=== PATIENT | male | born 1950 | race Caucasian/White ===

== ENCOUNTER → 2016-06-23 | Outpatient (CLI) | payer MEDICARE ==
[~2016-06-23] MED LIST: ASPIRIN 81MG TA81 MG PO; COUMADIN 2MG TAB2 MG PO; COUMADIN 5MG TAB5 MG PO; CRESTOR10 MG PO; FLUOXETINE20 M1 PO; MULTI VITAMINS1 TA1 PO; PRAVASTATIN 40M40 MG PO; VITAMIN D1000 IU PO
--- NOTE | 2016-06-23 15:23 | RADIOLOGY REPORT PS360 ---
History and Indications: Coronary artery disease, previous [place]. Procedure: Patient received 0.4 mg of Lexiscan, resting heart rate was 47 beats per resting blood pressure 113/69, with Lexiscan maximum heart rate achieved was 86 bpm which is less than 85% of the maximum predicted heart rate and a blood pressure was 121/74 with Lexiscan patient complained of nausea and shortness of breath. Electrocardiogram: Resting electrocardiogram showed sinus bradycardia, with Lexiscan there is less than 1.[address] segment depression noted from the baseline EKG. The EKG portion of the Lexiscan is nondiagnostic. Cardiac stress and resting SPECT images: Cardiac stress and resting SPECT images were obtained using technetium 99 Myoview 10.7 mCi at rest and 30.7 mCi at stress, gated SPECT further analysis of segmental wall motion and calculation of the ejection fraction also done. Cardiac stress and the suspect images show a fixed involving the inferior and posterobasal wall with reduced contractility in the gated SPECT is likely secondary to prior nontransmural myocardial scarring, no obvious reversible ischemia seen. Cardiac ejection fraction is 49% with marked inferior and posterobasal wall hypokinesis. Right ventricle is normal size and contractility. Conclusion: 1. The EKG portion of the Lexiscan is nondiagnostic. 2. Scintigraphic evidence of prior nontransmural myocardial scarring involving the inferior and posterobasal wall without significant khadijah-infarct ischemia. 3. Computer derived ejection fraction is 49% no wall motion abnormalities as described above, right ventricle is normal size and contractility. 4. Abnormal scan Myoview study.
--- NOTE | 2016-06-23 17:06 | RADIOLOGY REPORT PS360 ---
PROCEDURE: 2-D M-mode and color Doppler study INDICATIONS FOR THE TEST: Chest pain COPD Heart Murmur+ Tobacco Smoking+ Palpitations Fatigue Syncope Edema Hypertension+Diabetes Mellitus Rheumatic Fever SOB SCHMIDT Obesity Hyperlipidemia+ Family History HD Additional History CAD, AFIB, 1 Stent PATIENT INFORMATION HEIGHT: 75 WEIGHT: 166 GENDER: Male B/P: 113/69 2-D/M-MODE INTERPRETATION: 2-D MEASUREMENTS OBSERVED VALUES IN CMS Right Ventricular Dimension (RVDd) 2.2 Interventricular Septum (Thickness)(IVsd) 0.9 Left Ventricular Internal Dimensions(LVIDd) 5.2 Left Ventricular Posterior Wall (Thickness)(LVPWd) 0.8 Aortic Root 2.4 Aortic Cusp Separation 2.6 Left Atrial Dimensions (LAD) 3.2 2D 1. Left atrium is normal size, left ventricle is normal size, there is no concentric left ventricular hypertrophy, visually estimated ejection fraction 55% with no obvious regional wall motion abnormality. 2. The right atrium and right ventricle are normal size and contractility. 3. The aortic valve is minimally thickened and calcified there is no aortic stenosis. 4. The mitral valve has mild mitral desiccation there is no mitral stenosis. 5. The tricuspid valve is structurally normal. 6. The pulmonic valve is not well visualized. 7. No significant pericardial effusion noted. DOPPLER INTERROGATION: Doppler interrogation of the aortic mitral and tricuspid valvular presence of mild mitral and tricuspid regurgitation, grade 1 diastolic dysfunction seen without Doppler evidence of raised left atrial pressure. Tricuspid regurgitant jet velocity insufficient for calculation of the right ventricular systolic pressure. CONCLUSION: 1. Normal left ventricular size, preserved left ventricular systolic function visually estimated ejection fraction 55% with no obvious regional wall motion abnormality, grade 1 diastolic dysfunction seen without tissue Doppler evidence of raised left atrial pressure. 2. Mild mitral and tricuspid regurgitation. 3. No significant pericardial effusion noted.
== END ==
LOC: RAD 07:00
DX: I25.10 Atherosclerotic heart disease of native coronary artery without angina pectoris (principal); I10 Essential (primary) hypertension; I48.91 Unspecified atrial fibrillation; G45.9 Transient cerebral ischemic attack, unspecified; R00.1 Bradycardia, unspecified; Z95.5 Presence of coronary angioplasty implant and graft
CPT/HCPCS: A9502; J2785

== ENCOUNTER 2016-11-14 13:21 | Emergency (ER) | payer MEDICARE ==
[~2016-11-14] VITALS: Ht 190.5 cm; Wt 74.8 kg
[2016-11-14] MEDS ORDERED: BRILINTA90 M1 PO (13:31)
[2016-11-14] MEDS ORDERED: AMIODARONE HYD200 MG PO (13:32)
[2016-11-14 13:50] LABS: LYMPH % 20.8 % (10-50)
[2016-11-14 13:51] LABS: HEMOGLOBIN 15.4 g/dL (14.1-18.0)
--- NOTE | 2016-11-14 13:58 | Emergency Room Report ---
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 N Clinical Suspician of Infection? Y Mental Status: 1 - Regular (Normal Baseline) Sepsis Risk:Low Sepsis Risk Have you (or family members/close friends) recently traveled outside the [place]? N If Yes, where/when: Have you had exposure to infectious disease within the past month? N TB? Other? Specify: 66-year-old white male with history of paroxysmal atrial fibrillation was taken off his Coumadin 6 days ago for a cardiac catheterization. He underwent a stent to the circumflex by Dr. Robles. He is currently on aspirin and berlinta. He denies having chest pain shortness of nausea vomiting or abdominal pain. History of strokes. He contacted Dr. Robles and he was told to come to the ER to be examined. His electrocardiogram is atrial fibrillation 1 36/min with LEFT ventricular strain pattern. Source patient, RN notes reviewed, family, old records Exam Limitations no limitations ALLERGIES Coded Allergies: latex (Mild, 06/23/16) Home Medications Reported Medications PRAVASTATIN SODIUM (Pravastatin Sodium) 40 MG PO QHS ASPIRIN (Aspirin) 81 MG PO DAILY Fluoxetine Hcl (Fluoxetine) 20 MG PO DAILY MULTIVITAMIN (One Daily Multivitamin) 1 TAB PO DAILY CHOLECALCIFEROL (VITAMIN D3) (Vitamin D3) 2,000 IUNITS PO DAILY Ticagrelor (Brilinta) 90 MG PO BID AMIODARONE HCL (Amiodarone Hydrochloride) 200 MG PO BID #60 History Medical History General Angina: No [place]: Yes Hypertension? No Hyperlipidemia? Yes COPD? No Asthma? No CVA? No Seizures? No Diabetes? No GB Disease: No MRSA? No TB? No Cancer? Yes Site: SKIN Immunization Hx DT/Tetanus Unknown Flu 2015-FSN Pneumonia Never Had Surgical Hx Previous Surgery?Y CARDIAC STENT Orthopedic LEFT NEPHRECTOMY 02/02 Family History Family Hx Diabetes Yes CAD No Hypertension No Hyperlipidemia No Cancer No TB No Social History Smoking Hx Smoker: Current Every Day Smoker Tobacco: Yes Type Pipe Alcohol Alcohol: No Review of Systems All Other Systems Reviewed and Negative Constitutional no symptoms reported Eyes no symptoms reported ENT no symptoms reported. Respiratory no symptoms reported Cardiovascular see HPI, palpitations Gastrointestinal no symptoms reported Genitourinary no symptoms reported. Musculoskeletal no symptoms reported Skin no symptoms reported Psychiatric/Neurological no symptoms reported Physical Exam Vital Signs Vital Signs Date Time Temp Pulse Resp B/P Pulse O2 O2 Flow FiO2 Ox Delivery Rate 11/14 1444 57 18 132/82 99 11/14 1415 62 18 129/69 98 11/14 1324 97.8 70 18 115/82 98 - WBC >12,000 or <4,000 or 10% bands? 2 or more SIRS Criteria Met? B/P:115/82 MAP:93 Creatinine >2.0? UA output<0.5ml/kg/hr for 2 hrs? Platelet count >100,000? Lactate >2.0mmol/1? INR >1.2 or PTT > than 60 sec? Evidence of Organ Dysfunction? Provider documented clinical suspician of infection? Y Sepsis Criteria Count: 1 Sepsis Risk: Low Sepsis Risk General Appearance normal appearance, WD/WN Eye Exam - bilateral eye normal exam, bilateral eye PERRL, bilateral eye EOMI Ear, Nose, Throat hearing grossly normal, normal ENT inspection Neck normal inspection, non-tender, supple, full range of motion Respiratory Status Yes: trachea midline, chest symmetrical, non tender chest. No: respiratory distress. Lung Sounds bilateral: normal breath sounds, lungs clear. Cardiovascular irregularly irregular Peripheral Pulses Pulses normal Yes Gastrointestinal normal bowel sounds, normal exam, non tender, soft, no organomegaly Back normal inspection, no CVA tenderness, no vertebral tenderness Neurologic alert, cassandra developer II-XII nml as tested, normal exam, oriented x 3 Reflexes Reflexes normal Yes Mental status normal mood/affect Medical Decision Making LABS/Meds/Orders Pt receiving controlled substance in ED? No Results/Orders Laboratory Tests 11/14/16 1403: PT 11.9 H, INR 1.10, APTT 29.6 11/14/16 1330: Sodium 138, Potassium 4.0, Chloride 105, Carbon Dioxide 25, BUN 13, Creatinine 1.6 H, Estimated Creat Clear 49 L, Estimated GFR (MDRD) 44, Glucose 79, Calcium 8.8, Total Bilirubin 1.3 H, AST 18, ALT 20, Alkaline Phosphatase 86, Creatine Kinase 56, CK-MB (CK-2) Rel Index 0.9, CK and CKMB Interp < 0.5, Troponin I < 0.02, Total Protein 7.0, Albumin 3.7, Globulin 3.3 H, Albumin/ Globulin Ratio 1.1, WBC 9.4, RBC 5.00, Hgb 15.4, Hct 44.9, MCV 89.6, RDW 12.8, Plt Count 289, MPV 7.5, Gran % 68.2, Gran # 6.4, Lymphocytes % 20.8, Monocytes % 7.7, Eosinophils % 2.8, Basophils % 0.5, Lymphocytes # 2.0, Monocytes # 0.7, Eosinophils # 0.3, Basophils # 0.1, PUBS MCHC 34.1, MCH 30.6 Current Medication Orders Sig/Ahmet Start time Last Medication Dose Route Stop Time Status Admin Amiodarone HCl 400 MG ONCE ONE 11/14 1515 AC PO 11/14 1516 Rivaroxaban 15 MG ONCE ONE 11/14 1515 AC PO 11/14 1516 Sodium Chloride 500 ML .Q1H 11/14 1445 AC 11/14 IV 11/14 1544 1437 Sodium Chloride 10 ML PRN PRN 11/14 1445 AC IV 11/15 1436 Sodium Chloride 500 ML .Q1H 11/14 1400 DC IV Sodium Chloride 10 ML PRN PRN 11/14 1400 DC IV 11/15 1350 Sodium Chloride 500 ML .STK-MED ONE 11/14 1356 DC IV Sodium Chloride 10 ML PRN PRN 11/14 1345 DC IV 11/15 1332 Orders Procedure Date/time Status ELECTROCARDIOGRAM REQUEST 11/14 133 Active CHEST-PORTABLE 11/14 133 Active PARTIAL THROMBOPLASTIN TIME 11/14 1333 Complete PROTHROMBIN TIME 11/14 1333 Complete CBC WITH AUTO DIFF 11/14 1333 Complete CARDIAC ENZYMES 11/14 1333 Complete CHEM 12 PROFILE 11/14 1333 Complete 12 LEAD EKG-YARIEL (INITIAL) 11/14 1330 Active CM/EKG CM/EKG EKG rate, NSR, rhythm, no evid. of ischemic chgs, no ectopy, normal QRS, normal WA, normal EKG Departure Departure Time of Disposition 1507 Disposition Still a Patient Clinical Impression Primary Impression: Atrial fibrillation with rapid ventricular response Secondary Impressions: CAD (coronary artery disease), CVA, old, hemiparesis Condition STABLE Referrals Keren NEWMAN,Rolando Martinez (Family) Additional Instructions That the patient Is in the Second Electrocardiogram Which Was 60 Minutes Acute Findings I called his special procedure tech Dr. Robles who advised to give him a loading dose of amiodarone 400 mg and xalerto 15 mg daily as a substitute for Coumadin, i added a protonix for PUD prophylaxis. Retrun as needed and to be see in the clinic on Wednesday . Discharge Counseling Counseled pt/family regarding diagnosis, test results, medications/RX, follow up needs ED Critical Care Critical Care No If Critical Care minutes are documented, the time involved in the performance of seperately reportable procedures was not counted toward critical care time documented. I directly delivered medical care to this critically ill and/or injured patient. Timely evaluation and treatment was necessary to address the significant organ system(s) dysfunction present in this patient. at [id number]
[2016-11-14 14:35] LABS: BUN 13 mg/dL (7-18)
[2016-11-14 14:36] LABS: GFR (ESTIMATED) 44 ML/MIN (>60)
[2016-11-14] MEDS ORDERED: XARELTO15 MG PO (15:13)
[2016-11-14 15:38] VITALS: BP 124/85
--- NOTE | 2016-11-14 17:50 | RADIOLOGY REPORT PS360 ---
CHEST-PORTABLE HISTORY: PALPITATIONS ORDERING PHYSICIAN: PATIENT AGE: 66 years COMPARISON: 11/15/2008 FINDINGS: The cardiomediastinal silhouette and pulmonary vascularity are within normal limits. There is an ill-defined 2.4 cm opacity in the left midlung overlying the fourth rib anteriorly. This could be due to summation density however pulmonary nodule cannot be excluded and follow-up PA and lateral chest x-ray is recommended. No acute bony anomalies. IMPRESSION: Summation density versus left mid lung nodule. Follow-up recommended.
== END 2016-11-14 15:39 | disposition still patient (30) ==
LOC: ER 13:21
PROVIDERS: Emergency Medicine
DX: I48.0 Paroxysmal atrial fibrillation (principal); I25.10 Atherosclerotic heart disease of native coronary artery without angina pectoris; Z86.73 Personal history of transient ischemic attack (TIA), and cerebral infarction without residual deficits; Z87.891 Personal history of nicotine dependence; Z79.899 Other long term (current) drug therapy; Z91.040 Latex allergy status

== ENCOUNTER → 2016-12-14 | Outpatient (CLI) | payer MEDICARE ==
[~2016-12-14] MED LIST changes: +AMIODARONE HYD200 MG PO; +BRILINTA90 M1 PO; +XARELTO15 MG PO
[2016-12-14 11:38] LABS: BILIRUBIN, INDIRECT 0.89 mg/dL (0-0.9)
== END ==
LOC: LAB 09:38
PROVIDERS: Internal Medicine Cardiovascular Disease
DX: I25.10 Atherosclerotic heart disease of native coronary artery without angina pectoris (principal); I10 Essential (primary) hypertension; I42.9 Cardiomyopathy, unspecified; E78.5 Hyperlipidemia, unspecified